=== PATIENT | female | born 1980 | race Two or more races ===

== ENCOUNTER 2019-04-20 07:20 | Day surgery (SDC) | payer OTHER ==
[~2019-04-20 07:20] MED LIST: PERCOCET 5/3251 TAB PO
[2019-04-20] MEDS ORDERED: PERCOCET 5-3251 EACH PO (14:56)
== END 2019-04-20 18:00 | disposition home or self-care (01) ==
LOC: CIR.AMB 07:20
DX: N75.0 Cyst of Bartholin's gland (principal)

== ENCOUNTER 2023-01-21 06:14 | Day surgery (SDC) | payer OTHER ==
[~2023-01-21] VITALS: Ht 167.6 cm; Wt 68.0 kg
[~2023-01-21 06:14] MED LIST changes: +PERCOCET 5-3251 EACH PO
== END 2023-01-21 14:50 | disposition home or self-care (01) ==
LOC: CIR.AMB 06:14
PROVIDERS: ATTEND Specialist
DX: N92.1 Excessive and frequent menstruation with irregular cycle (principal); N85.8 Other specified noninflammatory disorders of uterus; Z20.822 Contact with and (suspected) exposure to COVID-19